=== PATIENT | female | born 1960 | race Two or more races ===

== ENCOUNTER → 2018-08-09 | Outpatient (REF) ==
--- NOTE | 2018-08-09 18:57 | RADIOLOGY IMAGING REPORT ---
FACILITY: [facility] PATIENT NAME: Sanjuanita Garcia : 1960 MR: [id number] V: [id number] EXAM DATE: ORDERING PHYSICIAN: TAMIA BUSTAMANTE TECHNOLOGIST: Location: [facility] [place] Patient: Sanjuanita Garcia : 1960 Visit/Account:[id number] Date of Sevice: 08/09/2018 EXAMINATION: Right knee, 3 views 08/09/2018 5:55 PM HISTORY: Right knee pain and swelling COMPARISON: None FINDINGS: Degenerative spurring along articular margins. Lateral femorotibial joint space loss. Narr owing of the lateral patellofemoral space is more on the left than the right on the merchant view whi ch includes both knees. There is a suprapatellar effusion visible on the right. No clear loose body. No acute bony injury evident. IMPRESSION: Osteoarthritis as above. Right knee joint effusion is also present. I called report to TAMIA BUSTAMANTE at 08/09/2018 6:54 PM. Report Dictated By: Gordy Metz MD at 08/09/2018 6:48 PM Report E-Signed By: Gordy Metz MD at 08/09/2018 6:54 PM WSN:[id number]
== END ==
LOC: RAD 17:30
PROVIDERS: ATTEND Nurse Practitioner
DX: M17.11 Unilateral primary osteoarthritis, right knee (principal)

== ENCOUNTER → 2018-09-08 | Outpatient (REF) ==
--- NOTE | 2018-09-08 16:38 | RADIOLOGY IMAGING REPORT ---
FACILITY: [facility] PATIENT NAME: Sanjuanita Garcia : 1960 MR: [id number] V: [id number] EXAM DATE: ORDERING PHYSICIAN: TAMIA BUSTAMANTE TECHNOLOGIST: Location: [facility] Patient: Sanjuanita Garcia : 1960 Visit/Account:[id number] Date of Sevice: 09/08/2018 KNEE 4 VIEW RIGHT Indication: Right knee pain and swelling. Comparison: None. Findings: There is mild narrowing of the medial and lateral compartment as well as the patellofemoral compartment with osteophyte formation. There is a small suprapatellar effusion. There is no eviden ce of fracture. IMPRESSION: 1. Moderate tricompartment osteoarthritis. 2. Moderate suprapatellar joint effusion. Report Dictated By: Gordy Abdi at 09/08/2018 4:31 PM Report E-Signed By: Gordy Abdi at 09/08/2018 4:32 PM WSN:[email or web address]
== END ==
LOC: RAD 15:46
PROVIDERS: ATTEND Nurse Practitioner
DX: M17.11 Unilateral primary osteoarthritis, right knee (principal); M25.461 Effusion, right knee
CPT/HCPCS: 73564